=== PATIENT | male | born 1935 | race Caucasian/White ===

== ENCOUNTER → 2016-12-19 | Outpatient (CLI) | payer OTHER ==
[2016-12-19 13:31] LABS: BASO % 0.2 %; BASO ABS # 0.01 K/uL (0-0.2); COMPLETE YES; EOS % 0.8 %; HEMATOCRIT 41.5 % (42-52); LYMPH % 32.9 %; LYMPH ABS # 2.13 K/uL (1.2-3.4); MEAN CELL VOLUME 90.8 fL (80-100); MEAN CORPUSCULAR HEMOGLOBIN 31.1 pg (25-34); MEAN CORPUSCULAR HGB CONC 34.2 g/dl (32-36); MEAN PLATELET VOLUME 10.1 fL (7.4-10.4); MONO % 9.7 %; NEUT % 56.4 %; PLATELET COUNT 196 K/uL (130-400); RED BLOOD COUNT 4.57 M/uL (4.7-6.1); WHITE BLOOD COUNT 6.47 K/uL (4.8-10.8)
[2016-12-19 14:04] LABS: ALT/SGPT 25 U/L (12-78); AST/SGOT 20 U/L (15-37); BLOOD UREA NITROGEN 22 mg/dl (7-18); BUN/CREATININE RATIO 24.7 (10-20); CARBON DIOXIDE 30 mmol/L (21-32); CHLORIDE 107 mmol/L (98-107); GLUCOSE 91 mg/dl (70-99); POTASSIUM 3.8 mmol/L (3.5-5.1); SODIUM 143 mmol/L (136-145)
[2016-12-19 14:07] LABS: CALCIUM 8.9 mg/dl (8.5-10.1)
[2016-12-19 14:14] LABS: ALB/GLOB RATIO 1.2 (0.9-2); ALKALINE PHOSPHATASE 82 U/L (45-117)
--- NOTE | 2016-12-25 13:35 | CODING QUERY MEDICAL NECESSITY ---
SUPPORTING DIAGNOSIS NEEDED Dr. Valenzuela, A supporting diagnosis is required for the test/procedure performed on this patient in order for us to be reimbursed by the patient's insurance. Please provide a supporting diagnosis for the following test/procedure listed below next to the test name along with your signature. *If there is no additional diagnosis for this patient that would support the following test/procedure please document that below next to the test/procedure. Test(s)/Procedure(s) that require a supporting diagnosis: * [id number] PSA DIAGNOSIS: DATE OF SERVICE: 12/19/16 Provider Signature: Date: Thank you Walter Henson [facility] Information Management Once completed, please kindly fax back to [phone] For questions please call [phone]
== END | disposition home or self-care (01) ==
LOC: C.LABBC 09:48
PROVIDERS: ATTEND Internal Medicine
DX: Z00.00 Encounter for general adult medical examination without abnormal findings (principal); E03.9 Hypothyroidism, unspecified; R00.1 Bradycardia, unspecified; E06.3 Autoimmune thyroiditis; M62.549 Muscle wasting and atrophy, not elsewhere classified, unspecified hand; Z12.5 Encounter for screening for malignant neoplasm of prostate

== ENCOUNTER → 2016-12-22 | Outpatient (CLI) | payer OTHER | END | disposition home or self-care (01) | LOC: C.LABBC 10:56 | PROVIDERS: ATTEND Physician Assistant | DX: M62.81 Muscle weakness (generalized) (principal); R20.2 Paresthesia of skin ==

== ENCOUNTER → 2016-12-26 | Outpatient (CLI) | payer OTHER ==
--- NOTE | 2016-12-26 18:37 | DIAGNOSTIC IMAGING REPORT ---
MRI OF THE CERVICAL SPINE WITHOUT IV CONTRAST CLINICAL HISTORY: Muscle weakness. Paresthesias. COMPARISON STUDY: No priors. TECHNIQUE: MRI of the cervical spine is performed utilizing various T1 and T2-weighted sequences in the axial and sagittal planes. IV contrast was not administered for this examination. FINDINGS: Cervical spine: Vertebral body height is maintained throughout the cervical spine. There is mild retrolisthesis at C3-C4, C4-C5, and C5-C6. Alignment is otherwise maintained. There is straightening of cervical lordosis with reversal centered at C4. The atlantodental articulation appears intact. The spinous processes are maintained. There is chronic degenerative endplate change seen from C3 to C4 through C5-C6. Endplate edema is noted at C3-C4. No destructive bony lesion is identified. Anterior osteophytes are seen throughout. Intervertebral discs: There is degenerative disc desiccation seen throughout the cervical spine. Moderate loss of height is seen from C3-C4 through C5-C6. Spinal cord: There is a small focus of myelomalacia identified within the cervical cord at the level of C5. There is thinning of the cord at this level, and this is likely chronic. C2-C3: Uncovertebral and facet arthropathy cause mild to moderate left neural foraminal stenosis. A tiny posterior disc osteophyte complex minimally effaces the ventral subarachnoid space. C3-C4: A posterior disc osteophyte complex effaces the ventral cord. Uncovertebral and facet arthropathy cause moderate to severe left and [id number] right neural foraminal stenosis. C4-C5: A posterior disc osteophyte complex abuts the ventral cord. Uncovertebral and facet arthropathy cause severe bilateral neural foraminal stenosis, right greater than left. C5-C6: A posterior disc osteophyte complex effaces the ventral cord. Uncovertebral and facet arthropathy cause severe bilateral neural foraminal stenosis. C6-C7: A posterior disc osteophyte complex eccentric to the left effaces the ventral cord. Uncovertebral and facet arthropathy cause severe left and moderate to severe right neural foraminal stenosis. C7-T1: A posterior disc osteophyte complex abuts the ventral cord. Uncovertebral and facet arthropathy cause moderate to severe left neural foraminal stenosis. T1-T2: Unremarkable. Soft tissues: The prevertebral and paraspinous soft tissues are within normal limits. Brain parenchyma: Findings suggest a large arachnoid cyst at the posterior skull base. Imaged brain parenchyma at the skull base is otherwise normal in appearance. The cerebellar tonsils are normal in configuration. IMPRESSION: 1. Advanced multilevel cervical spondylosis as detailed above. This is greatest from C3 to C4 through C6-C7. See discussion for detailed level by level analysis. 2. There is a small focus of myelomalacia identified in the cervical cord at the level of C5. This is likely chronic and there is mild thinning of the cord at this level. 3. Degenerative disc disease as above with significant endplate edema at C3-C4. 4. A large arachnoid cyst is suspected in the posterior fossa. Correlation with any prior intracranial imaging will be required. Dictated: 12/26/2016 4:22 PM Transcribed: 12/26/2016 6:37 PM [email or web address] Electronically signed by: Izaiah Hickey M.D. 12/26/2016 6:41 PM Dictated Date/Time: 12/26/2016 4:22 PM
== END | disposition home or self-care (01) ==
LOC: C.MRIBC 15:33
PROVIDERS: ATTEND Physician Assistant
DX: M47.892 Other spondylosis, cervical region (principal); G95.89 Other specified diseases of spinal cord; R20.8 Other disturbances of skin sensation; M62.81 Muscle weakness (generalized)

== ENCOUNTER → 2017-01-19 | Outpatient (CLI) | payer OTHER ==
[~2017-01-19] MED LIST: GADAVIST IV PRN
--- NOTE | 2017-01-19 15:09 | DIAGNOSTIC IMAGING REPORT ---
MRI OF THE BRAIN WITHOUT AND WITH IV CONTRAST CLINICAL HISTORY: G93.0 Arachnoid [id number] paresthesias COMPARISON STUDY: MRI cervical spine dated 12/26/2016 TECHNIQUE: Utilizing a 1.5 Krissy magnet and dedicated coil, multiplanar, multiecho imaging of the brain was performed pre and postcontrast administration. IV administration of 8 mL of Gadavist contrast was uneventful. FINDINGS: Diffusion-weighted images are considered negative for an acute ischemic event. There is a 2.4 cm arachnoid cyst versus prominent cisterna magna the the posterior fossa. Signal characteristics of the cerebellar as well as cerebral hemispheres otherwise indicate a component of age-related chronic small vessel change. Ventricular system is midline. Sella and parasellar regions are unremarkable. Study is considered negative for abnormal postcontrast enhancement. Mild age-related generalized atrophy is noted. IMPRESSION: 1. Mild generalized age-related atrophy and chronic small vessel change. 2. No evidence for an enhancing lesion. 3. No acute ischemic focus. 4. A cisterna magna versus posterior arachnoid cyst of doubtful acute clinical significance Electronically signed by: Jason Rinaldi M.D. 01/19/2017 3:07 PM Dictated Date/Time: 01/19/2017 3:01 PM
== END | disposition home or self-care (01) ==
LOC: C.MRIBC 13:57
PROVIDERS: ATTEND Physician Assistant
DX: G93.0 Cerebral cysts (principal)